=== PATIENT | female | born 1950 | race Caucasian/White ===

== ENCOUNTER 2019-10-28 12:51 | Outpatient (CLI) | payer MEDICARE, SELFPAY ==
--- NOTE | 2019-10-29 14:28 | WPDPFTINT ---
PFT Interpretation PFT Interpretation: DOS: 10/28/2019 REQUESTING: Avinash Miles REASON FOR TESTING: Shortness of breath PULMONARY FUNCTION TESTS Results are reproducible. Spirometry: FEV1 is 112%, FVC 101%. FEV1% is also normal. The BHO35-02% is 102% and increased by 23% after bronchodilator. Lung volumes: TLC 101%, RV 105%, both are normal. Increased RV/TLC 41% consistent with air trapping. Raw 128%, mildly increased. Diffusion: DLCO 60%, moderately decreased. Flow volume loop: Normal. IMPRESSION: Mild air trapping and moderate diffusion impairment. The main feature is the moderate decrease in diffusion. Isolated decrease in DLCO can be seen in anemia, early ILD, collagen vascular disease with pulmonary vascular involvement and chronic thromboembolic diease. Clinical correlation is recommended. Mariela Taylor MD
== END 2019-10-28 12:52 | disposition home or self-care (01) ==
PROVIDERS: PCP Internal Medicine; Visit Provider Internal Medicine Critical Care Medicine
DX: R06.02 Shortness of breath (principal); R94.2 Abnormal results of pulmonary function studies
CPT/HCPCS: 94060; 94726; 94729

== ENCOUNTER 2019-12-30 07:29 | Outpatient (CLI) | payer MEDICARE, SELFPAY ==
--- NOTE | 2019-12-30 08:23 | ECHO_ITS ---
Patient Info Name: Alissa Blanco Age: 69 years : 1950 Gender: Female Ht: 65 in Wt: 215 lbs BSA: 2.16 m2 HR: 58 bpm BP: 133 / 92 mmHg Technical Quality: Good Exam Date: 12/30/2019 8:32 AM Exam Location: [facility] Patient Status: Outpatient Admit Date: 12/30/2019 Staff Ordering Physician: Mariela Taylor MD Supervisor Bindery: [place] Larry, FRANCES, RT Attending Provider: Mariela Taylor MD Referring Physician: Claudia RAM; Exam Type: CA echo doppler color flow Study Info Indications R06.02 - Shortness of breath Complete two-dimensional, color flow and Doppler transthoracic echocardiogram is performed. Summary 1. Left ventricular chamber dimension is normal. 2. Left ventricular systolic function is normal, estimated at 55-60%. 3. The left ventricular diastolic function is grade I diastolic dysfunction. 4. E/e' 10 is mildly elevated. 5. Global longitudinal strain is abnormal at -14.3%. 6. Left atrial chamber dimension is mildly enlarged. 7. The mitral valve has mildly calcified annulus. 8. There is mild mitral valve regurgitation. 9. There is moderate tricuspid valve regurgitation. 10. No pulmonary hypertension, estimated pulmonary arterial systolic pressure is 33 mmHg. Left Ventricle E/e' 10 is mildly elevated. Global longitudinal strain is abnormal at -14.3%. Left ventricular chamber dimension is normal. Left ventricular systolic function is normal, estimated at 55-60%. The left ventricular diastolic function is grade I diastolic dysfunction. Right Ventricle Right ventricular chamber dimension is normal. Right ventricular systolic function is normal. Left Atria Left atrial chamber dimension is mildly enlarged. Right Atria Right atrial chamber dimension is normal. Aortic Valve The aortic valve is trileaflet. There is no aortic valve stenosis. There is no aortic valve regurgitation. Pulmonic Valve There is no pulmonic regurgitation. Mitral Valve The mitral valve has mildly calcified annulus. There is no mitral valve stenosis. There is mild mitral valve regurgitation. Tricuspid Valve There is moderate tricuspid valve regurgitation. No pulmonary hypertension, estimated pulmonary arterial systolic pressure is 33 mmHg. Pericardium/Pleural There is no pericardial effusion. Inferior Vena Cava Normal inferior vena cava with >50% collapse upon inspiration consistent with normal right atrial pressure, 5 mmHg. Aorta The aortic root size at the sinus of Valsalva is normal. Left Ventricular Outflow Tract Name Value Normal LVOT 2D LVOT Diameter 2.0 cm LVOT Doppler LVOT Peak Gradient 4 mmHg LVOT Mean Gradient 2 mmHg LVOT VTI 24 cm LVOT VTI/AV VTI Ratio 0.9 LVOT Stroke Volume 74 ml LVOT CO 4.8 l/min LVOT CI 2.2 l/min/m2 Mitral Valve Name
== END 2019-12-30 07:30 | disposition home or self-care (01) ==
LOC: ANHCARD 07:30
PROVIDERS: PCP Internal Medicine; Visit Provider Internal Medicine Critical Care Medicine
DX: R06.02 Shortness of breath (principal); I34.0 Nonrheumatic mitral (valve) insufficiency; I07.1 Rheumatic tricuspid insufficiency
CPT/HCPCS: 93306

== ENCOUNTER 2020-02-19 11:15 | Outpatient (CLI) | payer MEDICARE, SELFPAY ==
[2020-02-19 12:09] LABS: Hematocrit 39.2 % (37.0-47.0); Hemoglobin 13.2 g/dL (12.0-15.0); Mean Corpuscular HGB Conc 33.7 g/dl (32-36); Mean Corpuscular Hemoglobin 31.7 pg (26-34); Mean Platelet Volume 10.9 fl (7.4-10.4); Platelet Count Result 190 k/mm3 (150-375); Red Blood Count 4.17 M/mm3 (4.2-5.4); Red Cell Distribution Width 12.5 % (11.5-14.5)
[2020-02-24 16:08] LABS: ANA Cascade Screen Negative (Negative)
== END 2020-02-19 11:16 | disposition home or self-care (01) ==
LOC: ANHLAB 11:19
PROVIDERS: PCP Internal Medicine; Visit Provider Internal Medicine Critical Care Medicine
DX: R06.02 Shortness of breath (principal)
CPT/HCPCS: 36415; 85027; 86038

== ENCOUNTER 2020-03-03 12:26 | Outpatient (CLI) | payer MEDICARE, SELFPAY ==
--- NOTE | ~2020-03-03 | XR_ITS ---
EXAMINATION: XR chest 2V DATE: 03/03/2020 13:09 INDICATION: Other forms of dyspnea. TECHNIQUE: Frontal and lateral views of the chest were obtained. COMPARISON: None. FINDINGS: The chest demonstrates clear lungs without pneumonia, pleural effusion, or pneumothorax. Th e heart size is normal. There is mild chronic anterior wedging of multiple midthoracic vertebral bodi es. Surgical clips in the right upper quadrant are likely from cholecystectomy. IMPRESSION: 1. No acute cardiopulmonary disease. Reviewed, dictated and finalized at location A.
--- NOTE | ~2020-03-03 | NM_ITS ---
EXAMINATION: NM pulmonary perfusion DATE: 03/03/2020 13:32 INDICATION: Dyspnea. TECHNIQUE: 5.5 mCi Tc-99m MAA was administered intravenously for perfusion images. Scintigraphic juany ges of the chest were obtained. COMPARISON: Chest 2 views 03/03/2020 FINDINGS: Perfusion images show a small defect in left upper lobe. ] IMPRESSION: 1. Pulmonary embolism absent (very low probability). Reviewed, dictated and finalized at location A.
== END 2020-03-03 12:27 | disposition home or self-care (01) ==
PROVIDERS: PCP Internal Medicine; Visit Provider Internal Medicine Critical Care Medicine
DX: R94.2 Abnormal results of pulmonary function studies (principal); R06.09 Other forms of dyspnea
CPT/HCPCS: 71046; 78580; A9540